=== PATIENT | male | born 1965 | race Caucasian/White ===

== ENCOUNTER 2018-07-17 22:22 | Emergency (ER) | payer OTHER ==
[~2018-07-17] VITALS: Ht 180.3 cm; Wt 79.4 kg
--- NOTE | 2018-07-17 22:50 | NUR ---
Patient BIB [id number]. Patient brought in for ETOH, was found at [facility]. Patient has slurred speech, but is able to speak in complete sentences. Respiratory even and unlabored. No cardiovascular distress, all palpable. No GI/ distress at this time. Patient in bed at lowest setting. Side rails up x2. Call light within reach. Fall precautions implemented per protocol.
[2018-07-17 23:16] LABS: BASOPHILS % (AUTO) 0.6 % (0.0-2.0); EOSINOPHILS % (AUTO) 1.5 % (0.0-7.0); HEMATOCRIT 40.1 % (36.7-47.1); HEMOGLOBIN 13.6 g/dL (12.5-16.3); LYMPHOCYTES # (AUTO) 1.3 K/uL (20.0-40.0); LYMPHOCYTES % (AUTO) 40.5 % (20.5-51.5); MEAN CORPUSCULAR HEMOGLOBIN 31.9 uug (23.8-33.4); MEAN CORPUSCULAR HGB CONC 34 g/dL (32.5-36.3); MEAN CORPUSCULAR VOLUME 94.2 fL (73.0-96.2); MONOCYTES # (AUTO) 0.4 K/uL (2.0-10.0); MONOCYTES % (AUTO) 13.7 % (0.0-11.0); NEUTROPHILS # (AUTO) 1.4 K/uL (1.8-8.9); NEUTROPHILS % (AUTO) 43.7 % (38.5-71.5); PLATELET COUNT (AUTO) 93 K/uL (152-348); RED BLOOD CELL COUNT(AUTO) 4.26 MIL/uL (4.06-5.63); WHITE BLOOD COUNT (AUTO) 3.1 K/uL (3.6-10.2)
[2018-07-17 23:20] LABS: CARBON DIOXIDE 29 mmol/L (21-32); CHLORIDE 100 mmol/L (98-107); CREATININE 0.8 mg/dL (0.6-1.3); GLUCOSE 92 mg/dL (74-106); POTASSIUM 3.9 mmol/L (3.5-5.1); UREA NITROGEN, BLOOD 7 mg/dL (7-18)
--- NOTE | 2018-07-17 23:24 | NUR ---
Patient in bed sleeping. NAD, VSS.
[2018-07-17 23:25] LABS: ETHANOL 457 MG/DL (0-0)
[2018-07-17 23:27] LABS: *BILIRUBIN,URIN NEGATIVE (NEGATIVE); *BLOOD, URINE Trace-lysed (NEGATIVE); *CLARITY,URINE CLEAR (CLEAR); *COLOR,URINE LIGHT YELLOW (YELLOW); *KETONES,URINE NEGATIVE (NEGATIVE); *UROBILINOGEN,URINE 0.2 E.U./dl (NORMAL); LEUKOCYTE ESTERASE ,URINE NEGATIVE (NEGATIVE); NITRITE, URINE NEGATIVE (NEGATIVE); PH,URINE 6.5 (5.0-8.0); UGLUCOSE NEGATIVE (NEGATIVE)
[2018-07-17 23:34] LABS: ALANINE AMINOTRANSFERASE 198 U/L (16-63); ALKALINE PHOSPHATASE 101 U/L (50-136); ASPARTATE AMINOTRANSFERASE 353 U/L (15-37); BILIRUBIN,DIRECT 0.2 mg/dL (0.0-0.2); BILIRUBIN,TOTAL 0.7 mg/dL (0.2-1.0); TOTAL PROTEIN, SERUM 7.1 g/dL (6.4-8.2)
[2018-07-17 23:36] LABS: ACETAMINOPHEN < 2.0 ug/mL (10-30)
[2018-07-17 23:36] LABS: BACTERIA,URINE NONE SEEN /HPF (NONE SEEN); RBC,URINE 0-3 /HPF (0-3); SQUAMOUS EPITHELIAL CELL,UR FEW /HPF (NONE SEEN); WBC,URINE NONE SEEN /HPF (0-3)
[2018-07-17 23:38] LABS: *AMPHETAMINE, URINE NEGATIVE (NEGATIVE); *BARBITURATE, URINE NEGATIVE (NEGATIVE); *CANNABINOID, URINE NEGATIVE (NEGATIVE); *COCCAINE, URINE NEGATIVE (NEGATIVE); *OPIATE, URINE NEGATIVE (NEGATIVE); *PHENCYCLIDINE SCREEN,URINE NEGATIVE (NEGATIVE)
--- NOTE | 2018-07-18 05:09 | NUR ---
Patient sleeping in bed. IFTIKHAR VSS
--- NOTE | 2018-07-18 07:08 | NUR ---
Report endorsed to OLMAN Ramirez.
--- NOTE | 2018-07-18 07:08 | NUR ---
recieved pt in bed, resting, arousable.
--- NOTE | 2018-07-18 07:30 | NUR ---
hospital breakfast tray at bedside. pt awake.
--- NOTE | 2018-07-18 10:20 | NUR ---
pt awake, axox4, speech normal, walks in steady gait. pt refuses to talk to marriage and family social worker, refuses to get any homeless resource package at his point. pt " will take care of it" himself. pt provided with clean clothing, sandwich packages. pt declined shelters. Addendum: 07/18/18 at 1048 by JULIANA px and clinic resources not applicable. pt refused substance abuse resources.
--- NOTE | 2018-07-18 10:39 | NUR ---
Patient given written and verbal discharge instructions. Patient verbalizes understanding of instructions. Patient is ambulatory with steady gait.
[2018-07-18 10:44] VITALS: BP 111/71
== END 2018-07-18 10:44 | disposition home or self-care (01) ==
LOC: ER 22:24
DX: F10.129 Alcohol abuse with intoxication, unspecified (principal); Y90.8 Blood alcohol level of 240 mg/100 ml or more
CPT/HCPCS: 36415; 71045; 80048; 80076; 80307; 81001; 85025; 93005; 99284; G0480 ×2; G0481; A4663